=== PATIENT | female | born 1960 | race Two or more races ===

== ENCOUNTER 2022-08-02 10:45 | Emergency (ER) | payer MEDICAID ==
[~2022-08-02] VITALS: Ht 160 cm; Wt 65.9 kg
[2022-08-02] MEDS ORDERED: ACETAMINOPHEN 325 MG TABLET PO ONE (14:00)
[2022-08-02 14:58] LABS: COVID AG,FIA SOURCE NASAL SWAB
[2022-08-02 16:23] VITALS: BP 190/101
== END 2022-08-02 19:20 | disposition short-term general hospital (02) ==
LOC: EMS 11:23
DX: S05.92XA Unspecified injury of left eye and orbit, initial encounter (principal); H54.413A Blindness right eye category 3, normal vision left eye; Z88.6 Allergy status to analgesic agent; Z20.822 Contact with and (suspected) exposure to COVID-19; X58.XXXA Exposure to other specified factors, initial encounter; Y93.89 Activity, other specified; Y92.89 Other specified places as the place of occurrence of the external cause; Y99.8 Other external cause status
CPT/HCPCS: 99285; Z7502; Z7610